=== PATIENT | female | born 1960 | race Caucasian/White ===

== ENCOUNTER 2016-10-25 14:19 | Outpatient (CLI) | payer OTHER ==
[2016-05-21 17:34] VITALS: O2SAT 100
== END 2016-10-25 14:20 | disposition home or self-care (01) ==
LOC: CONVCARE 14:19
PROVIDERS: ATTEND Orthopaedic Surgery
DX: M17.0 Bilateral primary osteoarthritis of knee (principal)
CPT/HCPCS: 73564

== ENCOUNTER 2016-11-14 10:01 | Emergency (ER) | payer OTHER ==
[2016-11-14 10:27] LABS: BASOPHILS % (AUTO) 1 % (0-3); EOSINOPHILS % (AUTO) 2 % (0-9); HEMATOCRIT 38 % (35-47); MONOCYTES % (AUTO) 9.2 % (0-12); NEUTROPHILS % (AUTO) 64.4 % (37-80)
[2016-11-14 10:28] LABS: MEAN CORPUSCULAR VOLUME 81 fL (81-99)
[2016-11-14 10:48] LABS: CALCIUM 8.7 mg/dl (8.5-10.1); GLOM FILT RATE 50 mL/min (>60); MAGNESIUM 1.8 mg/dl (1.8-2.4); POTASSIUM 3.7 mMol/L (3.5-5.1); SODIUM 136 mMol/L (136-145)
[2016-11-14 11:14] VITALS: TEMP 98.3
[2016-11-14 12:29] VITALS: BP 140/67; PULSE 73; RESP 14; O2SAT 96
== END 2016-11-14 12:00 | disposition home or self-care (01) ==
LOC: ED 10:01
DX: I44.1 Atrioventricular block, second degree (principal)
CPT/HCPCS: 36415; 71010; 80048; 83735; 84100; 84484; 85025; 93005; 99284